=== PATIENT | female | born 1970 | race Hispanic/Latino ===

== ENCOUNTER 2017-10-23 21:38 | Inpatient (IN) | payer BC ==
[~2017-10-23] VITALS: Ht 157.5 cm; Wt 95.8 kg
[2017-10-23] MEDS ORDERED: PANTOPRAZOLE 40 MG 10ML VIAL IV STA (22:24)
[2017-10-23] MEDS ORDERED: SODIUM CHLORIDE 0.9% 1000ML 1,000 ML IV ONE (22:30)
[2017-10-23] MEDS ORDERED: ONDANSETRON HCL INJ 2 MG/ML VIAL IV STA (22:31)
[2017-10-23] MEDS ORDERED: MORPHINE SULFATE 2 MG/ML SYR IV STA (22:48)
[2017-10-23] MEDS ORDERED: PIPER-TAZ 3.375 GM 50 ML IV ONE (23:45)
[2017-10-23] MEDS ORDERED: D5.45%NS/KCL 20MEQ 1,000 ML IV SCH (23:47)
[2017-10-23] MEDS ORDERED: POTASSIUM CHLORIDE 20 MEQ TAB CR PO STA (23:56)
[2017-10-24] VITALS (8 sets, daily range): BP systolic 122–153; BP diastolic 68–83
[2017-10-24] MEDS ORDERED: ONDANSETRON HCL INJ 2 MG/ML VIAL IV PRN
[2017-10-24] MEDS ORDERED: SODIUM CHLORIDE 0.9% 1000ML 1,000 ML IV SCH
[2017-10-24] MEDS ORDERED: FENTANYL CITRATE/PF 100MCG/2 ML INJ IV ONE (00:15)
[2017-10-24] MEDS: D5NS/KCL 20MEQ 1,000 ML IV SCH ×2 (01:00→08:00)
[2017-10-24] MEDS ORDERED: PIPER-TAZ 3.375 GM / NS 50ML IV SCH (06:00)
[2017-10-24 07:45] LABS: BASOPHILS % 0.5 % (0.0-1.0); EOSINOPHILS # (AUTO) 0.1 (0.0-0.4); EOSINOPHILS % 0.8 % (0.0-6.0); HEMATOCRIT 34.6 % (34.2-44.1); HEMOGLOBIN 10.7 g/dL (12.0-16.0); LYMPHOCYTES # (AUTO) 1.2 (1.0-3.2); LYMPHOCYTES % 18.9 % (18.0-39.1); MEAN CORPUSCULAR HEMOGLOBIN 24.3 pg (28-32); MEAN CORPUSCULAR HGB CONC 30.9 g/dL (31-35); MEAN CORPUSCULAR VOLUME 78.5 fL (81-99); MONOCYTES # (AUTO) 0.5 (0.2-0.8); MONOCYTES % 7.6 % (4.4-11.3); NEUTROPHILS # (AUTO) 4.6 (2.1-6.9); NEUTROPHILS % 71.9 % (38.7-80.0); PLATELET COUNT 184 x10e3/uL (140-360); RED BLOOD COUNT 4.41 x10e6/uL (3.6-5.1); RED CELL DISTRIBUTION WIDTH 16.8 % (11.7-14.4)
[2017-10-24 08:01] LABS: AMYLASE 928 U/L (25-125)
[2017-10-24 08:18] LABS: LIPASE 2123 U/L (8-78)
[2017-10-24 08:20] LABS: CHOL/HDL RATIO 3.3 (3.0-3.6)
[2017-10-24] MEDS: PANTOPRAZOLE 40 MG 10ML VIAL IV SCH (08:42)
--- NOTE | 2017-10-24 09:10 | History and Physical ---
PRIMARY CARE PHYSICIAN: None. CHIEF COMPLAINT: Back pain radiating to the chest. HISTORY OF PRESENT ILLNESS: This is a 47-year-old woman with no significant medical history, now developing back pain in the mid back radiating to the chest for 1 day with nausea and vomiting. Denies any diarrhea or fever. Denies any chest pain. Denies any dizziness or blurred vision. Patient went to [facility] and found to have possible pancreatitis and transitioned here for management. PAST MEDICAL HISTORY: None. PAST SURGICAL HISTORY: . ALLERGIES: PER ELECTRONIC MEDICAL RECORD. FAMILY HISTORY/SOCIAL HISTORY: The patient is . She has 1 child. No alcohol, illicits or cigarettes. MEDICATIONS: Per electronic medical record. REVIEW OF SYSTEMS: Denies any dizziness, chest pain, shortness of breath, fever, chills, sweats, leg pain, headache or blurred vision. VITAL SIGNS: Have been reviewed. PHYSICAL EXAMINATION GENERAL: A tired-appearing woman resting in bed. HEENT: Anicteric. Pupils are responsive to light. No oral lesions. CARDIOVASCULAR: Normal S1 and S2. LUNGS: Moderate breath sounds. ABDOMEN: Soft, nondistended. She has positive Mistry's sign. Right abdomen is tender. EXTREMITIES: No edema. SKIN: Dry. PSYCHIATRIC: Normal affect. LABS: Reviewed. MEDICATIONS: Reviewed. ASSESSMENT: This is a 47-year-old woman. 1. Acute gallstone pancreatitis. 2. Obesity. 3. Elevated blood pressure. 4. Microcytic anemia. PLAN 1. N.P.O. status. Increase IV fluids to 250 an hour. 2. Surgical consultation. 3. Lipase improving. 4. Triglycerides only 63. 5. Scan for diabetes: Hemoglobin A1c 5.0. 6. SCDs and PPI. 7. Continue IV Zosyn. 8. Follow up. Job#: [id number]
[2017-10-24 09:21] LABS: ALANINE AMINOTRANSFERASE 320 IU/L (0-55); ALBUMIN 3.1 g/dL (3.5-5.0); ALKALINE PHOSPHATASE 214 IU/L (40-150); ANION GAP 11.5 mmol/L (8-16); BLOOD UREA NITROGEN 14 mg/dL (7-26); BUN/CREATININE RATIO 16 (6-25); CALCIUM 8.3 mg/dL (8.4-10.2); CARBON DIOXIDE 22 mmol/L (22-29); CHLORIDE 111 mmol/L (98-107); CREATININE, SERUM 0.85 mg/dL (0.57-1.11); EST GLOMERULAR FILTRATION RATE > 60 ML/MIN (60-); GLUCOSE 102 mg/dL (74-118); POTASSIUM 4.5 mmol/L (3.5-5.1); SODIUM 140 mmol/L (136-145)
[2017-10-24] MEDS: SODIUM CHLORIDE 0.9% 1000ML 1,000 ML IV SCH ×4 (09:45→20:44)
[2017-10-24] MEDS ORDERED: GADOBENATE DIMEGLUMINE 1 ML IV ONE (12:33)
[2017-10-24] MEDS: PIPER-TAZ 3.375 GM 50 ML IV SCH ×2 (13:54→21:58)
--- NOTE | 2017-10-24 15:08 | Diagnostic Imaging Report ---
EXAM: MRI of the abdomen with and without contrast. INDICATION: Gallstone pancreatitis. COMPARISON: None. TECHNIQUE: Multiplanar and multisequence imaging was performed of the abdomen with and without administration of intravenous contrast. MRCP series included. IV Contrast: 20 cc of MultiHance Oral Contrast: None. Medications: None Discussion: LOWER THORAX: Unremarkable. HEPATOBILIARY: No focal hepatic lesions. No biliary ductal dilation. GALLBLADDER: Multiple gallstones. No wall thickening. SPLEEN: No splenomegaly. PANCREAS: No focal masses or ductal dilatation. ADRENALS: No adrenal nodules KIDNEYS/URETERS: Kidneys enhance symmetrically. No hydronephrosis. No cystic or solid mass lesions. GI TRACT: No abnormal distention, wall thickening, or evidence of bowel obstruction. LYMPH NODES: No lymphadenopathy. VESSELS: Unremarkable. BONES: Unremarkable. SOFT TISSUES: Unremarkable. IMPRESSION: Cholelithiasis without evidence of cholecystitis. No definite evidence of choledocholithiasis. No evidence of pancreatitis on today's exam. No pancreatic ductal dilatation. Signed by: Dr. Elieser Peralta MD on 10/24/2017 3:05 PM
[2017-10-24] MEDS: MORPHINE SULFATE 2 MG/ML SYR IV PRN (20:45)
[2017-10-25] VITALS (7 sets, daily range): BP systolic 150–196; BP diastolic 76–96
[2017-10-25] MEDS: SODIUM CHLORIDE 0.9% 1000ML 1,000 ML IV SCH ×6 (02:00→21:05)
[2017-10-25 05:56] LABS: BASOPHILS % 0.4 % (0.0-1.0); EOSINOPHILS # (AUTO) 0.1 (0.0-0.4); EOSINOPHILS % 1.8 % (0.0-6.0); HEMATOCRIT 35.2 % (34.2-44.1); HEMOGLOBIN 10.8 g/dL (12.0-16.0); LYMPHOCYTES % 12.2 % (18.0-39.1); MEAN CORPUSCULAR HEMOGLOBIN 24.2 pg (28-32); MEAN CORPUSCULAR HGB CONC 30.7 g/dL (31-35); MEAN CORPUSCULAR VOLUME 78.9 fL (81-99); MONOCYTES # (AUTO) 0.4 (0.2-0.8); MONOCYTES % 5.4 % (4.4-11.3); NEUTROPHILS # (AUTO) 6.3 (2.1-6.9); NEUTROPHILS % 79.9 % (38.7-80.0); PLATELET COUNT 156 x10e3/uL (140-360); RED BLOOD COUNT 4.46 x10e6/uL (3.6-5.1); RED CELL DISTRIBUTION WIDTH 17.2 % (11.7-14.4)
[2017-10-25 06:12] LABS: ALANINE AMINOTRANSFERASE 219 IU/L (0-55); ALBUMIN/GLOBULIN RATIO 0.9 (0.8-2.0); ALKALINE PHOSPHATASE 210 IU/L (40-150); AMYLASE 1012 U/L (25-125); BLOOD UREA NITROGEN 9 mg/dL (7-26); BUN/CREATININE RATIO 12 (6-25); CALCIUM 8.2 mg/dL (8.4-10.2); CARBON DIOXIDE 21 mmol/L (22-29); CHLORIDE 111 mmol/L (98-107); CREATININE, SERUM 0.73 mg/dL (0.57-1.11); EST GLOMERULAR FILTRATION RATE > 60 ML/MIN (60-); GLUCOSE 86 mg/dL (74-118); SODIUM 139 mmol/L (136-145)
[2017-10-25] MEDS: PIPER-TAZ 3.375 GM 50 ML IV SCH ×3 (06:54→21:05)
[2017-10-25] MEDS: MORPHINE SULFATE 2 MG/ML SYR IV PRN ×3 (07:15→22:28)
[2017-10-25 07:21] LABS: ANISOCYTOSIS SLIGHT; HYPOCHROMASIA SLIGHT; PLATELET ESTIMATE SLIGHTLY DECREASED; RBC MORPHOLOGY COMMENT NORMAL
[2017-10-25 07:22] LABS: PLATELET MORPHOLOGY COMMENT RARE EDTA CLUMPING
[2017-10-25] MEDS: PANTOPRAZOLE 40 MG 10ML VIAL IV SCH (08:40)
[2017-10-25] MEDS ORDERED: SODIUM CHLORIDE 0.9% 100 ML 100 ML ONE (23:35)
[2017-10-26] VITALS: BP 157/90
[2017-10-26] MEDS: SODIUM CHLORIDE 0.9% 1000ML 1,000 ML IV SCH ×7 (02:12→21:15)
[2017-10-26] MEDS: MORPHINE SULFATE 2 MG/ML SYR IV PRN ×5 (03:34→20:35)
[2017-10-26 04:00] VITALS: BP 161/89
[2017-10-26] MEDS: PIPER-TAZ 3.375 GM 50 ML IV SCH ×3 (05:36→22:30)
[2017-10-26] MEDS: PANTOPRAZOLE 40 MG 10ML VIAL IV SCH (07:57)
[2017-10-26 08:17] VITALS: BP 171/96
[2017-10-26 09:00] LABS: BASOPHILS % 0.3 % (0.0-1.0); EOSINOPHILS # (AUTO) 0.1 (0.0-0.4); EOSINOPHILS % 0.5 % (0.0-6.0); HEMOGLOBIN 11.8 g/dL (12.0-16.0); LYMPHOCYTES # (AUTO) 0.7 (1.0-3.2); MEAN CORPUSCULAR HEMOGLOBIN 24.1 pg (28-32); MEAN CORPUSCULAR HGB CONC 31.1 g/dL (31-35); MEAN CORPUSCULAR VOLUME 77.6 fL (81-99); MONOCYTES # (AUTO) 0.8 (0.2-0.8); MONOCYTES % 7.7 % (4.4-11.3); NEUTROPHILS # (AUTO) 8.6 (2.1-6.9); NEUTROPHILS % 84.2 % (38.7-80.0); PLATELET COUNT 159 x10e3/uL (140-360); RED CELL DISTRIBUTION WIDTH 16.6 % (11.7-14.4)
[2017-10-26 09:15] LABS: AMYLASE 525 U/L (25-125); ANION GAP 12.7 mmol/L (8-16); BLOOD UREA NITROGEN 8 mg/dL (7-26); BUN/CREATININE RATIO 12 (6-25); CALCIUM 8.6 mg/dL (8.4-10.2); CARBON DIOXIDE 19 mmol/L (22-29); CHLORIDE 105 mmol/L (98-107); CREATININE, SERUM 0.68 mg/dL (0.57-1.11); EST GLOMERULAR FILTRATION RATE > 60 ML/MIN (60-); GLUCOSE 86 mg/dL (74-118); LIPASE 788 U/L (8-78); POTASSIUM 3.7 mmol/L (3.5-5.1); SODIUM 133 mmol/L (136-145)
[2017-10-26 12:20] VITALS: BP 162/88
--- NOTE | 2017-10-26 14:52 | Progress Note ---
DATE: October 26, 2017 TIME: 2:22 p.m. OVERNIGHT: Feeling a little better. REVIEW OF SYSTEMS: Denies any dizziness, chest pain, shortness of breath, fever, chills, sweats, leg pain, back pain. PHYSICAL EXAMINATION VITAL SIGNS: Have been reviewed. GENERAL: A tired-appearing woman resting in bed. HEENT: Anicteric. CARDIOVASCULAR: Normal S1 and S2. LUNGS: Moderate breath sounds. ABDOMEN: Soft and nondistended. She has mild tenderness in the abdomen. EXTREMITIES: No edema. SKIN: Dry. PSYCHIATRIC: Flat affect. LABS: Reviewed. MEDICATIONS: Reviewed. ASSESSMENT: A 47-year-old woman with: 1. Acute gallstone pancreatitis. 2. Obesity. 3. Elevated blood pressure. 4. Microcytic anemia. PLAN 1. Continue IV fluids. 2. Lipase is improving. 3. Will need surgery possibly tomorrow. 4. Triglycerides 63, hemoglobin A1c 5. 5. Continue care. Job#: [id number] GA
--- NOTE | 2017-10-26 15:04 | Progress Note ---
DATE: October 26, 2017 TIME: 7:15 a.m. OVERNIGHT: Feeling a little better. REVIEW OF SYSTEMS: Denies any dizziness, chest pain, shortness of breath, fever, chills, sweats. Denies any leg pain, back pain or headache. PHYSICAL EXAMINATION VITAL SIGNS: Reviewed. GENERAL: A tired-appearing woman resting in bed. HEENT: Anicteric. CARDIOVASCULAR: Normal S1 and S2. LUNGS: Moderate breath sounds. ABDOMEN: Soft and nondistended. Mild tenderness in the abdomen. EXTREMITIES: No edema. SKIN: Dry. PSYCHIATRIC: Flat affect. LABS: Reviewed. MEDICATIONS: Reviewed. ASSESSMENT: A 47-year-old woman. 1. Acute gallstone pancreatitis. 2. Obesity. 3. Elevated blood pressure. 4. Microcytic anemia. PLAN 1. Continue IV fluids. 2. Continue n.p.o. status. 3. Will need surgery at some point. Job#: [id number]
[2017-10-26 18:46] VITALS: BP 190/98
[2017-10-26 20:00] VITALS: BP 190/97
[2017-10-27] VITALS: BP 192/101
[2017-10-27] MEDS: LABETALOL HCL 5 MG/ML 20ML VIAL IV SCH ×4 (00:30→17:15)
[2017-10-27] MEDS: MORPHINE SULFATE 2 MG/ML SYR IV PRN ×2 (00:36→04:48)
[2017-10-27] MEDS: SODIUM CHLORIDE 0.9% 1000ML 1,000 ML IV SCH ×5 (01:15→15:01)
[2017-10-27 04:00] VITALS: BP 167/84
[2017-10-27 06:21] LABS: ALANINE AMINOTRANSFERASE 149 IU/L (0-55); ALBUMIN 2.9 g/dL (3.5-5.0); ALBUMIN/GLOBULIN RATIO 0.7 (0.8-2.0); ALKALINE PHOSPHATASE 369 IU/L (40-150); AMYLASE 142 U/L (25-125); ANION GAP 11.7 mmol/L (8-16); BLOOD UREA NITROGEN 7 mg/dL (7-26); BUN/CREATININE RATIO 10 (6-25); CALCIUM 8.8 mg/dL (8.4-10.2); CARBON DIOXIDE 21 mmol/L (22-29); CHLORIDE 105 mmol/L (98-107); CREATININE, SERUM 0.68 mg/dL (0.57-1.11); EST GLOMERULAR FILTRATION RATE > 60 ML/MIN (60-); GLUCOSE 85 mg/dL (74-118); POTASSIUM 3.7 mmol/L (3.5-5.1); SODIUM 134 mmol/L (136-145)
[2017-10-27] MEDS: PIPER-TAZ 3.375 GM 50 ML IV SCH ×3 (06:41→22:54)
[2017-10-27 08:00] VITALS: BP 183/97
[2017-10-27] MEDS ORDERED: LABETALOL HCL 5 MG/ML 20ML VIAL IV ONE (08:00)
--- NOTE | 2017-10-27 08:13 | Progress Note ---
DATE: October 27, 2017 TIME: 7 a.m. OVERNIGHT: Feeling a little better. REVIEW OF SYSTEMS: Denies any dizziness, chest pain, shortness of breath, fever, chills, sweats, nausea, vomiting, diarrhea, back pain, or headache. PHYSICAL EXAMINATION VITAL SIGNS: Reviewed. Blood pressure as high as 190/101. GENERAL: A tired-appearing woman resting in bed. HEENT: Anicteric. CARDIOVASCULAR: Normal S1 and S2. LUNGS: Moderate breath sounds. ABDOMEN: Soft and nondistended. Mild tenderness in the abdomen. EXTREMITIES: No edema. SKIN: Dry. PSYCHIATRIC: Flat affect. LABS: Reviewed. MEDICATIONS: Reviewed. ASSESSMENT: A 47-year-old woman with: 1. Acute gallstone pancreatitis. 2. Obesity. 3. Hypertension. 4. Microcytic anemia. PLAN 1. IV fluids. 2. Continue n.p.o. status. 3. Surgery pending. 4. Enzymes improving. 5. Titrate IV beta jihan for better blood pressure control. Job#: [id number] MANISHA
[2017-10-27] MEDS: PANTOPRAZOLE 40 MG 10ML VIAL IV SCH (08:20)
[2017-10-27] MEDS ORDERED: BUPIVACAINE 0.25%/EPI 30ML SDV INJ ONE (10:03)
[2017-10-27] MEDS ORDERED: IOPAMIDOL 300MG/ML 50ML INFUS..BTL IV ONE (10:27)
[2017-10-27] MEDS ORDERED: HYDROCODONE/APAP 7.5MG-325MG 1 EA TAB PO PRN (13:15)
[2017-10-27] MEDS ORDERED: ONDANSETRON HCL INJ 2 MG/ML VIAL IV PRN (13:15)
[2017-10-27] MEDS ORDERED: HYDROMORPHONE 1MG/1ML INJ ONE (13:17)
[2017-10-27] MEDS ORDERED: FENTANYL CITRATE/PF 100MCG/2 ML INJ ONE ×2 (13:36→18:01)
--- NOTE | 2017-10-27 13:43 | Operative Report ---
DATE OF PROCEDURE: October 25, 2017 PREOPERATIVE DIAGNOSIS: Cholecystitis, cholelithiasis and gallstone pancreatitis, rule out common bile duct stone. POSTOPERATIVE DIAGNOSIS: Cholecystitis, cholelithiasis and gallstone pancreatitis, no common bile duct stones. OPERATION PERFORMED: Laparoscopic cholecystectomy with intraoperative cholangiogram. ANESTHESIA: General. COMPLICATIONS: None. ESTIMATED BLOOD LOSS: Minimal. DESCRIPTION OF PROCEDURE: With the patient lying in bed in the supine position, under good general endotracheal anesthesia, the abdomen was prepped with Betadine solution and draped in the usual manner. A Veress needle was introduced into the umbilicus, and pneumoperitoneum was established without any difficulty. An 11-mm trocar was placed into the umbilicus, and a 10-mm video laparoscope was placed into the intra-abdominal cavity. Video laparoscopy at this point revealed some adhesions to the lower midline from the patient's previous section and a gallbladder that was thick-walled, distended and covered up with adhesions. The rest of the abdominal exploration was otherwise within normal limits. Three 5-mm trocars were placed in the right subcostal region. All of the adhesions to the gallbladder were slowly and carefully taken down. The peritoneum along the neck of the gallbladder was then opened, and the cystic duct was identified. The cystic duct was followed to its junction with the common duct. Cystic duct was then circumferentially dissected, and a clip was placed at the neck of the gallbladder. There was a stone that was impacted in the mid cystic duct. The cystic duct was opened right at that point, and the stone was extracted. A cholangiocath was introduced into the cystic duct; and under fluoroscopy, half-strength dye was introduced into the biliary tree, and this showed free flow of dye into the duodenum. No definite common bile duct filling defects. You could also see the beginning of the opening of the pancreatic duct at the level of the ampulla with some dye contained within it consistent with the patient's history of gallstone pancreatitis from a common channel. The cholangiogram catheter was then removed. The cystic duct was doubly clipped and divided. The cystic artery was similarly doubly clipped and divided. The gallbladder was then slowly and carefully taken off the liver bed. There was quite a bit of edema from the cholecystitis. Nonetheless, the gallbladder was totally removed, and perfect hemostasis was ascertained. The gallbladder was placed in a pouch and removed through the umbilicus without any difficulty. Video laparoscopy was then again carried out. The liver bed was found to be perfectly dry. All of the excess fluid was aspirated. The pneumoperitoneum was evacuated, and all the trocars were removed under direct vision. The midline fascia at the umbilicus was then closed with a [id number] of #0 Vicryl. All layers were infiltrated on the way out with a solution of 1/4 percent Marcaine. Subcutaneous tissue was approximated with 3-0 Vicryl, and the skin was closed with subcuticular 5-0 Vicryl. Benzoin, Steri-Strips and Band-Aids were applied. The sponge, lap and needle count was correct. The patient tolerated the procedure well and returned to the recovery room in stable condition. Job#: [id number]
[2017-10-27 17:11] VITALS: BP 135/75
[2017-10-27] MEDS ORDERED: PROPOFOL IV EMULSION 10 MG/ML 20 ML VIAL ONE (17:48)
[2017-10-27] MEDS ORDERED: DEXAMETHASONE SOD PHOS INJ 4 MG/ML VIAL ONE (17:48)
[2017-10-27] MEDS ORDERED: GLYCOPYRROLATE INJ 1MG/ 5 ML SYR ONE (17:48)
[2017-10-27] MEDS ORDERED: HYDRALAZINE HCL 20 MG/ML VIAL ONE (17:48)
[2017-10-27] MEDS ORDERED: ACETAMINOPHEN 1000 MG/100 ML IV ONE (17:48)
[2017-10-27] MEDS ORDERED: SEVOFLURANE INHAL SOLN 250 ML PEN BTL ONE (17:48)
[2017-10-27] MEDS ORDERED: ROCURONIUM BROMIDE 10 MG/ML 5ML VIAL ONE (17:48)
[2017-10-27] MEDS ORDERED: ONDANSETRON HCL INJ 2 MG/ML VIAL ONE (17:48)
[2017-10-27] MEDS ORDERED: LIDOCAINE HCL 2% LOCAL INJ 5 ML SDV VIAL INJ ONE (17:48)
[2017-10-27] MEDS ORDERED: NEOSTIGMINE 5 MG/5ML SYR ONE (17:48)
[2017-10-27] MEDS ORDERED: MIDAZOLAM HCL 2 MG/2 ML VIAL ONE (18:01)
--- NOTE | 2017-10-27 18:52 | Diagnostic Imaging Report ---
PROCEDURE: INTRAOPERATIVE CHOLANGIOGRAM COMPARISON: Patients [facility], MRI, MRI MRCP [facility], 10/24/2017, 13:10. INDICATIONS: pancreatitis TECHNIQUE: Intraoperative cholangiogram was performed by Dr. Harrison. 14 abdominal spot radiographs from the procedure were made available for evaluation. FINDINGS:Filling of contrast of the common bile duct with spillage of contrast into the second portion of the duodenum. No intraluminal filling defects are identified. IMPRESSION: 1. No filling defects in the CBD Shaw Garrido M.D. Dictated by: Shaw Garrido M.D. on 10/27/2017 at 18:56 Electronically approved by: Shaw Garrido M.D. on 10/27/2017 at 18:56
[2017-10-27 20:00] VITALS: BP 155/82
[2017-10-28] VITALS: BP 152/81
[2017-10-28] MEDS: SODIUM CHLORIDE 0.9% 1000ML 1,000 ML IV SCH ×2 (01:42→11:42)
[2017-10-28 04:00] VITALS: BP 155/72
[2017-10-28 05:36] LABS: BASOPHILS % 0.2 % (0.0-1.0); EOSINOPHILS % 0.2 % (0.0-6.0); HEMATOCRIT 33.5 % (34.2-44.1); HEMOGLOBIN 10.7 g/dL (12.0-16.0); LYMPHOCYTES % 9.3 % (18.0-39.1); MEAN CORPUSCULAR HEMOGLOBIN 24.7 pg (28-32); MEAN CORPUSCULAR HGB CONC 31.9 g/dL (31-35); MEAN CORPUSCULAR VOLUME 77.4 fL (81-99); MONOCYTES # (AUTO) 0.6 (0.2-0.8); MONOCYTES % 6.1 % (4.4-11.3); NEUTROPHILS # (AUTO) 8.6 (2.1-6.9); NEUTROPHILS % 83.9 % (38.7-80.0); PLATELET COUNT 220 x10e3/uL (140-360); RED BLOOD COUNT 4.33 x10e6/uL (3.6-5.1); RED CELL DISTRIBUTION WIDTH 17.4 % (11.7-14.4)
[2017-10-28 06:11] LABS: ALANINE AMINOTRANSFERASE 148 IU/L (0-55); ALBUMIN 2.6 g/dL (3.5-5.0); ALBUMIN/GLOBULIN RATIO 0.7 (0.8-2.0); ALKALINE PHOSPHATASE 315 IU/L (40-150); AMYLASE 29 U/L (25-125); ANION GAP 12.9 mmol/L (8-16); BLOOD UREA NITROGEN 9 mg/dL (7-26); BUN/CREATININE RATIO 13 (6-25); CALCIUM 8.7 mg/dL (8.4-10.2); CARBON DIOXIDE 22 mmol/L (22-29); CHLORIDE 106 mmol/L (98-107); CREATININE, SERUM 0.69 mg/dL (0.57-1.11); EST GLOMERULAR FILTRATION RATE > 60 ML/MIN (60-); GLUCOSE 92 mg/dL (74-118); POTASSIUM 3.9 mmol/L (3.5-5.1); SODIUM 137 mmol/L (136-145)
[2017-10-28] MEDS: PIPER-TAZ 3.375 GM 50 ML IV SCH ×2 (06:19→14:14)
[2017-10-28] MEDS: LABETALOL HCL 5 MG/ML 20ML VIAL IV SCH ×3 (06:20→12:10)
[2017-10-28 07:07] LABS: HYPOCHROMASIA SLIGHT; RBC MORPHOLOGY COMMENT NORMAL
[2017-10-28 07:08] LABS: ANISOCYTOSIS SLIG; PLATELET ESTIMATE ADEQUATE; PLATELET MORPHOLOGY COMMENT RARE EDTA CLUMPING; POIKILOCYTOSIS SLIGHT
--- NOTE | 2017-10-28 08:14 | Progress Note ---
DATE: October 28, 2017 TIME: 7:30 a.m. OVERNIGHT: The patient had laparoscopic procedure. REVIEW OF SYSTEMS: Denies any dizziness, chest pain, shortness of breath, fever, chills, sweats, nausea, leg pain, back pain, and headache. PHYSICAL EXAMINATION VITAL SIGNS: Reviewed. GENERAL: A tired-appearing woman resting in bed. HEENT: Anicteric. CARDIOVASCULAR: Normal S1 and S2. LUNGS: Moderate breath sounds. ABDOMEN: Soft and nondistended. She has a dressing at the laparoscopic site. Abdomen is mildly tender. EXTREMITIES: No edema. SKIN: Dry. PSYCHIATRIC: Normal affect. NEUROLOGICAL: Alert and oriented. LABS: Reviewed. MEDICATIONS: Reviewed. ASSESSMENT: A 47-year-old woman with: 1. Acute gallstone pancreatitis: Status post laparoscopic cholecystectomy. 2. Obesity. 3. Hypertension. 4. Microcytic anemia. PLAN 1. She is status post laparoscopic cholecystectomy. 2. Pain control. 3. Ambulate today. 4. Continue medication regimen. 5. Await clinical improvement. 6. Bilirubin numbers are improving. Job#: [id number] MANISHA
[2017-10-28] MEDS: PANTOPRAZOLE 40 MG 10ML VIAL IV SCH (08:41)
[2017-10-28 08:45] VITALS: BP 136/74
[2017-10-28 10:49] VITALS: BP 136/74
[2017-10-28 12:56] VITALS: BP 163/83
[2017-10-28] MEDS ORDERED: TYLENOL WITH C1 EACH PO (16:11)
[2017-10-28] MEDS ORDERED: KEFLEX500 MG PO (16:12)
[2017-10-28] MEDS ORDERED: MORPHINE SULFATE INJ 4 MG/ML INJ IV PRN (16:30)
== END 2017-10-28 16:42 | disposition home or self-care (01) | DRG 418 ==
LOC: FSED 21:38 → ERHOLD 22:24 → OBSVTOIN 23:47 → INTOOBSV 23:47 → ERHOLD 23:47 → MED/SURG 10-24 00:45 → OBSVTOIN 10-25 08:37
PROVIDERS: ADMIT Internal Medicine; ATTEND Internal Medicine
PROC: BF141ZZ Fluoroscopy of Gallbladder, Bile Ducts and Pancreatic Ducts using Low Osmolar Contrast (ICD-10-PCS; 2017-10-27)
PROC: 0FT44ZZ Resection of Gallbladder, Percutaneous Endoscopic Approach (ICD-10-PCS; principal; 2017-10-27 10:30)
DX: K85.10 Biliary acute pancreatitis without necrosis or infection (principal); K80.10 Calculus of gallbladder with chronic cholecystitis without obstruction; D64.9 Anemia, unspecified; E66.9 Obesity, unspecified; Z68.38 Body mass index [BMI] 38.0-38.9, adult; R03.0 Elevated blood-pressure reading, without diagnosis of hypertension
CPT/HCPCS: 36415; 74183; 74300; 76705; 80048; 80053; 80061; 80076; 81003; 81025; 82150; 83036; 83690; 85025; 88304; C1766; G0378; J0360; J1100; J1170; J2001; J2250; J2270; J2405; J2543; J7030